=== PATIENT | male | born 1965 | race Caucasian/White ===

== ENCOUNTER 2019-05-14 10:13 | Emergency (ER) | payer OTHER ==
[~2019-05-14] VITALS: Ht 170.2 cm; Wt 72.6 kg
--- NOTE | 2019-05-14 10:50 | NUR ---
DR MCLAIN AT BEDSIDE FOR EVAL.
[2019-05-14] MEDS ORDERED: LORAZEPAM 1 MG TABLET PO ONE (11:00)
[2019-05-14] MEDS ORDERED: LORAZEPAM 0.5 MG TABLET ONE (11:05)
[2019-05-14 11:09] VITALS: BP 141/83
--- NOTE | 2019-05-14 11:19 | NUR ---
MEDICALLY CLEARED FOR BOOKING. RELEASED TO [facility].
== END 2019-05-14 11:20 ==
LOC: ER 10:20
DX: F11.23 Opioid dependence with withdrawal (principal); E11.9 Type 2 diabetes mellitus without complications; Z60.2 Problems related to living alone; W19.XXXA Unspecified fall, initial encounter; Y93.89 Activity, other specified; Y92.89 Other specified places as the place of occurrence of the external cause; Y99.8 Other external cause status

== ENCOUNTER 2023-03-08 16:49 | Inpatient (IN) | payer OTHER ==
[~2023-03-08] VITALS: Ht 170.2 cm; Wt 78.0 kg
--- NOTE | 2023-03-08 17:00 | NUR ---
LERYN[address] FROM [facility] FOR NOTED AMS SINCE THIS MORNING, HYPOTENSIVE AND HIGH BLOOD SUGAR READ PATIENT SUPPORT ASSISTANT. THE PATIENT IS VENT/TRACH. RESPONSIVE TO PAINFUL STIMULI. THE PATIENT IS ATTACHED TO THE MONITOR. BLANKET PROVIDED FOR COMFORT. WILL CONTINUE TO MONITOR THE PATIENT.
[2023-03-08] MEDS: IV NS 0.9% 1,000 ML BAG IV ONE (17:15)
--- NOTE | 2023-03-08 17:25 | NUR ---
covid swab done and sent to the lab
[2023-03-08] MEDS ORDERED: CLON0.2T PO (17:42)
[2023-03-08] MEDS ORDERED: VALP250S4 GT (17:42)
[2023-03-08] MEDS ORDERED: LEVO500T90 GT (17:42)
[2023-03-08] MEDS ORDERED: FAMO20TA8 GT (17:42)
[2023-03-08] MEDS ORDERED: ASPI-1169 GT (17:42)
[2023-03-08] MEDS ORDERED: INSU100V7 SQ ×2 (17:42)
[2023-03-08] MEDS ORDERED: ATOR40TA GT (17:42)
[2023-03-08] MEDS ORDERED: ASCO-352 GT (17:42)
[2023-03-08] MEDS ORDERED: METO25TA20 GT (17:42)
[2023-03-08] MEDS ORDERED: MAGN400O6 GT (17:42)
[2023-03-08] MEDS ORDERED: OLAN10TA3 PO (17:42)
[2023-03-08] MEDS ORDERED: TYL2T GT (17:42)
[2023-03-08] MEDS ORDERED: ACET-2605 GT (17:42)
[2023-03-08] MEDS ORDERED: GABA300C GT (17:42)
[2023-03-08] MEDS ORDERED: LORA-259 GT (17:42)
[2023-03-08] MEDS ORDERED: NUT.237L31 GT (17:42)
[2023-03-08] MEDS ORDERED: NA P133E RC (17:42)
[2023-03-08] MEDS ORDERED: ZINC50TA69 GT (17:42)
[2023-03-08] MEDS ORDERED: AMLO-213 GT (17:42)
[2023-03-08] MEDS ORDERED: POLY17PO4 GT (17:42)
[2023-03-08] MEDS ORDERED: ACET-868 GT (17:42)
[2023-03-08] MEDS ORDERED: LOPE2CAP40 GT (17:42)
[2023-03-08] MEDS ORDERED: COLL30OI TP (17:42)
[2023-03-08] MEDS ORDERED: NYST15CR TD (17:42)
[2023-03-08] MEDS ORDERED: NYST5ORA MM (17:42)
[2023-03-08] MEDS ORDERED: DOCU-141 GT (17:42)
[2023-03-08] MEDS ORDERED: INSU100V11 SQ (17:42)
[2023-03-08] MEDS ORDERED: BISA10SU11 RC (17:42)
--- NOTE | 2023-03-08 17:48 | NUR ---
MOVE SHEET SUBMITTED.
--- NOTE | 2023-03-08 17:50 | NUR ---
PERFORMED IN AND OUT CATH FOR PATIENT PER PHYSICIAN'S ORDERS IN ORDER TO OBTAIN URINE SAMPLE. Addendum: 03/08/23 at 1800 by NIALL URINE COLLECTED AND SENT TO LAB
--- NOTE | 2023-03-08 17:51 | NUR ---
BLOOD SPECIMEN COLLECTED AND SENT TO THE LAB
[2023-03-08 18:10] LABS: BASOPHILS % (AUTO) 0.3 % (0.0-2.0); EOSINOPHILS % (AUTO) 0.1 % (0.0-6.0); HEMATOCRIT 34 % (39-51); HEMOGLOBIN 10.6 g/dL (13.5-17.5); LYMPHOCYTES # (AUTO) 2.3 K/uL (0.8-4.8); LYMPHOCYTES % (AUTO) 26.6 % (20.0-44.0); MEAN CORPUSCULAR HGB CONC 32 g/dl (31.0-36.0); MEAN CORPUSCULAR VOLUME 84 fL (80-96); MONOCYTES # (AUTO) 1.1 K/uL (0.1-1.30); MONOCYTES % (AUTO) 12.9 % (2.0-12.0); NEUTROPHILS # (AUTO) 5.2 K/uL (1.8-8.9); NEUTROPHILS % (AUTO) 60.1 % (43.0-81.0); PLATELET COUNT (AUTO) 112 K/uL (150-450); RED BLOOD CELL COUNT(AUTO) 3.98 MIL/uL (4.5-6.0); WHITE BLOOD COUNT (AUTO) 8.7 K/uL (4.3-11.0)
--- NOTE | 2023-03-08 18:15 | NUR ---
pt to ct scan via [facility]
[2023-03-08 18:22] LABS: CALCIUM, SERUM 9.1 mg/dL (8.5-10.1); CARBON DIOXIDE 27 mmol/L (21-32); CHLORIDE 97 mmol/L (98-107); CREATININE 1.7 mg/dL (0.6-1.3); POTASSIUM 4.8 mmol/L (3.5-5.1); SODIUM SERUM 135 mmol/L (136-145); UREA NITROGEN, BLOOD 55 mg/dL (7-18)
[2023-03-08 18:25] LABS: GLUCOSE 421 mg/dL (74-106)
--- NOTE | 2023-03-08 18:26 | NUR ---
THE PATIENT IS TAKEN TO CT VIA [facility]
--- NOTE | 2023-03-08 18:32 | NUR ---
PT FROM CT SCAN VIA [facility],. PT STABLE VS, WNL.
[2023-03-08 18:36] LABS: ALANINE AMINOTRANSFERASE 22 U/L (12-78); ALBUMIN 2.6 g/dL (3.4-5.0); ALKALINE PHOSPHATASE 73 U/L (46-116); ASPARTATE AMINOTRANSFERASE 22 U/L (15-37); BILIRUBIN,DIRECT 0.1 mg/dL (0.0-0.2); BILIRUBIN,TOTAL 0.4 mg/dL (0.2-1.0)
[2023-03-08 18:54] LABS: BILIRUBIN,URINE NEGATIVE (NEGATIVE); COLOR,URINE YELLOW (YELLOW); LEUKOCYTE ESTERASE ,URINE TRACE (NEGATIVE); NITRITE, URINE NEGATIVE (NEGATIVE); PROTEIN,URINE 1+ mg/dl (NEGATIVE); UGLUCOSE 3+ mg/dL (NEGATIVE); UROBILINOGEN,URINE 0.2 EU/dL (0.2)
[2023-03-08 19:01] LABS: RBC,URINE 51-80 /HPF (0-2)
[2023-03-08 19:02] LABS: BACTERIA,URINE 3+ /HPF (None Seen); MUCUS,URINE Few /LPF (None Seen); SQUAMOUS EPITHELIAL CELL,UR 0-2 /HPF (None Seen)
[2023-03-08] MEDS ORDERED: INSULIN REGULAR, HUMAN 100 UNIT/ML 10 ML VIAL SQ ONE (19:30)
--- NOTE | 2023-03-08 19:30 | NUR ---
RECEIVED REPORT FROM ALTHEA MCMULLEN. PATIENT CAME EARLIER FROM SNF D/T LOW BP AND HI SUGAR LEVEL. PATIENT IS AAOX0. WITH TRACHE SIZE 8 ATTACHEDTO VENT ON AC MODE WITH SETTINGS OF FIO2 50%, TV 500ML, PEEP 5 RATE OF 14. PATIENT OPENS EYES, WITHDRAWS TO PAINFUL STIMULI. WITH G TUBE, WITH 2 IV CANNULA. LEFT WRIST G 20 AND LEFT FOOT G22. PT IS ATTACHED TO MONITOR. VITALS CHECKED.
[2023-03-08] MEDS ORDERED: PIPERACI/TAZO 3.375GM/D5W 50ML PB IV ONE (19:59)
[2023-03-08] MEDS ORDERED: PIPERACILLIN /TAZOBACTAM 3.375 G in IV D5W 50 ML IV ONE (20:00)
--- NOTE | 2023-03-08 21:04 | NUR ---
CALLED [facility], PAGED SUZY BUTLER GEOLOGY ASSOCIATE FOR ADMISSION
--- NOTE | 2023-03-08 21:11 | NUR ---
UPDATES GIVEN TO SHERWIN RUIZ. [phone]
--- NOTE | 2023-03-08 22:12 | NUR ---
CALLED [facility] [phone]. REQUESTING FACE SHEET, CLINICALS AND MED LIST TO BE FAX OVER AT [facility]. KENAN ALMONTE MADE AWARE.
[2023-03-09] MEDS ORDERED: Z GUARD REMEDY 4 OZ OINT TP PRN
[2023-03-09] MEDS ORDERED: BISACODYL SUPP (10 MG) 10 MG/SUPP.RECT SUPP.RECT RC PRN
[2023-03-09] MEDS ORDERED: DEXTROSE 50%-WATER 50 ML DISP.SYRIN IV PRN
[2023-03-09] MEDS ORDERED: LORAZEPAM 1 MG TABLET GT PRN
[2023-03-09] MEDS ORDERED: GLUCERNA 1.5 1,000 ML BOTTLE GT SCH
[2023-03-09] MEDS ORDERED: ONDANSETRON HCL/PF 4 MG/2 ML VIAL IVP PRN
--- NOTE | 2023-03-09 00:49 | NUR ---
BS RECHECKED 97
[2023-03-09] MEDS: BLOOD SUGAR DIAGNOSTIC 1 EACH STRIP IN SCH ×5 (00:52→23:07)
--- NOTE | 2023-03-09 00:53 | NUR ---
KENAN BUTLER MADE AWARE OF PT'S BS. AWAITING FOR FURTHER ORDER
--- NOTE | 2023-03-09 00:57 | NUR ---
BS 97, WILL NOT GIVE LANTUS DOSE AT THE MOMENT.
--- NOTE | 2023-03-09 02:10 | NUR ---
RM 328-2
[2023-03-09 02:25] VITALS: BP 149/79
--- NOTE | 2023-03-09 02:25 | NUR ---
REPORT GIVEN TO LUIS FERNANDO OH ALL QUESTIONS ANSWERED.
--- NOTE | 2023-03-09 02:41 | NUR ---
PT TRANSFERED TO 328-2 WITH ACLS PROTOCOL AND RT BAGGING PT WITH NO DISTRESS.
--- NOTE | 2023-03-09 03:00 | NUR ---
SAW FEEDER ADMITTING NOTE PATIENT WAS TRANSFERRED FROM ER TO 328 2 AT 0230H; PATIENT IS A/O X 1, OPENS EYE SPONTANEOUSLY BUT UNABLE TO SPEAK; STABLE ON CURRENT SETTING OF MECHANICAL VENTILATOR, BREATHING EVENLY AND NO S/S OF DISTRESS NOTED; HOOKED TO CARDIAC MONITORING CURRENTLY READING SINUS TACHYCARDIA 110S BPM; WITH IV ACCESS AT LEFT WRIST G#20 SALINE LOCK, WITH IV ACCESS AT LEFT FOOT G#22; WITH G TUBE IN PLACE; SKIN ASSESSMENT WAS DONE AND WOUNDS ARE PHOTOGRAPHED AND INSERTED INTO CHART; VITAL SIGNS TAKEN AND RECORDED; PATIENT'S BELONGINGS ACCOUNTED FOR; SAFETY MEASURES IMPLEMENTED, BED LOCKED IN LOWEST POSITION, SIDE RAILS UP X 2, CALL LIGHT AND TABLE WITHIN REACH; WILL CONTINUE TO MONITOR THROUGHOUT SHIFT
[2023-03-09] MEDS: IV NS 0.9% 1,000 ML IV PRN (03:55)
[2023-03-09 04:00] VITALS: BP 108/66
[2023-03-09] MEDS ORDERED: GLUCERNA 1.2 1,000 ML BOTTLE NG PRN (04:00)
[2023-03-09] MEDS: GLUCERNA 1.2 1,000 ML BOTTLE GT PRN (04:13)
[2023-03-09 06:13] LABS: BASOPHILS % (AUTO) 0.4 % (0.0-2.0); EOSINOPHILS % (AUTO) 0.5 % (0.0-6.0); HEMATOCRIT 27 % (39-51); HEMOGLOBIN 8.6 g/dL (13.5-17.5); LYMPHOCYTES # (AUTO) 0.7 K/uL (0.8-4.8); LYMPHOCYTES % (AUTO) 13.7 % (20.0-44.0); MEAN CORPUSCULAR HGB CONC 32 g/dl (31.0-36.0); MEAN CORPUSCULAR VOLUME 82 fL (80-96); MONOCYTES # (AUTO) 0.6 K/uL (0.1-1.30); MONOCYTES % (AUTO) 10.7 % (2.0-12.0); NEUTROPHILS # (AUTO) 3.8 K/uL (1.8-8.9); NEUTROPHILS % (AUTO) 74.7 % (43.0-81.0); PLATELET COUNT (AUTO) 80 K/uL (150-450); RED BLOOD CELL COUNT(AUTO) 3.28 MIL/uL (4.5-6.0); WHITE BLOOD COUNT (AUTO) 5.2 K/uL (4.3-11.0)
[2023-03-09 06:33] LABS: CALCIUM, SERUM 8.3 mg/dL (8.5-10.1); CREATININE 0.9 mg/dL (0.6-1.3); MAGNESIUM 1.9 mg/dL (1.8-2.4); PHOSPHORUS 2.3 mg/dL (2.5-4.9); POTASSIUM 3.2 mmol/L (3.5-5.1)
[2023-03-09] MEDS: INSULIN REGULAR, HUMAN 100 UNIT/ML 3 ML VIAL SQ PRN ×4 (06:42→23:10)
[2023-03-09 06:50] LABS: THYROID STIMULATING HORMONE 2.303 uIU/mL (0.358-3.74)
--- NOTE | 2023-03-09 07:00 | NUR ---
FOREST ECONOMIST CLOSING NOTE PATIENT IS A/O X 1, OPENS EYE SPONTANEOUSLY BUT UNABLE TO SPEAK; ON MECHANICAL VENTILATOR TOLERATING CURRENT SETTINGS, BREATHING EVENLY AND NO S/S OF DISTRESS NOTED; HOOKED TO CARDIAC MONITORING CURRENTLY READING SINUS TACHYCARDIA 100-110S BPM; WITH IV ACCESS AT LEFT WRIST G#20 SALINE LOCK RUNNING WITH NORMAL SALINE AT 75 ML/HR, WITH IV ACCESS AT LEFT FOOT G#22, SALINE LOCK; WITH G TUBE IN PLACE INFUSING WITH GLUCERNA 1.2 AT 50ML/HR FOR 20 HRS; SAFETY MEASURES IMPLEMENTED, BED LOCKED IN LOWEST POSITION, SIDE RAILS UP X 2, CALL LIGHT AND TABLE WITHIN REACH; WILL ENDORSE TO AM NURSE FOR CAROLE.
--- NOTE | 2023-03-09 07:40 | NUR ---
RN OPENING NOTE RECEIVED PATIENT AWAKE IN BED. A/O X1, OPENS EYES BUT UNABLE TO SPEAK. ON VENT, TOLERATING SETTING WELL AT PRESCRIBED SETTING, (FIO2:40 TV: 500 PEEP:5 AC) BREATHING EVEN AND UNLABORED, NO DISTRESS OR SHORTNESS OF BREATH NOTED. IV ACCESS ON LEFT WRIST #20G WITH NS AT 75 ML/HOUR, RIGHT HAND #22 SL AND LEFT FOOT #22G SL. WITH EXTERNAL PHYSICIST CRYOGENICS WITH CURRENT READING OF SINUS TACHYCARDIA WITH HR 115. WITH G TUBE GLUCERNA FEEDING 1.2L AT 50 ML/HOUR X 20HRS. FALL AND SAFETY MEASURES IN PLACE, BED ALARM ON, BED IN LOW AND LOCK POSITION, CALL LIGHT AND TABLE WITHIN EASY REACH, SIDE RAILS X2. WILL CONTINUE TO MONITOR. G-TUBE RUNNING,
[2023-03-09 08:00] VITALS: BP 118/66
[2023-03-09] MEDS ORDERED: COLLAGENASE 30 GM TUBE TP SCH (09:00)
[2023-03-09] MEDS: ASPIRIN 81 MG TAB.CHEW GT SCH (09:47)
[2023-03-09] MEDS: HEPARIN SODIUM, PORCINE 5000 UNITS/1 ML VIAL SQ SCH ×2 (09:47→20:05)
--- NOTE | 2023-03-09 09:47 | NUR ---
RN NOTE INFORMED DR MARSHALL OF PATIENTS LABORATORIES: HGB 8.6, HCT 27 AND PLATELET 80. ALSO INFORMED OF TEMPERATURE OF 102. ORDERED TO HOLD HEPARIN AND ENOXAPARIN. PRN MED FOR FEVER GIVEN VIA GT. ALSO ORDERED TO START VANCOMYCIN AND CEFEPIME, PHARMACY TO DOSE. ORDERS NOTED AND CARRIED OUT.
[2023-03-09] MEDS: POLYETHYLENE GLYCOL 3350 17 GM POWD.PACK GT SCH (09:51)
[2023-03-09] MEDS: FAMOTIDINE (20 MG) 20 MG TABLET GT SCH (09:51)
[2023-03-09] MEDS: GABAPENTIN 300 MG CAPSULE GT SCH ×3 (09:52→17:22)
[2023-03-09] MEDS: VALPROIC ACID 250 MG/5 ML UDC GT SCH ×3 (09:52→17:22)
[2023-03-09] MEDS: ZINC SULFATE 220 MG CAPSULE GT SCH (09:52)
[2023-03-09] MEDS: OLANZAPINE 10 MG TABLET PO SCH ×2 (09:52→17:22)
[2023-03-09] MEDS: ASCORBIC ACID 500 MG TABLET GT SCH (09:53)
--- NOTE | 2023-03-09 09:58 | NUR ---
RN NOTE CALLED PHARMACY, [facility] NOT YET AVAILABLE. WAS INFORMED BY PHARMACIST THAT THEY WILL DELIVER IT.
[2023-03-09] MEDS ORDERED: NEUTRA PHOS 1 POWD.PACKET GT ONE (10:00)
[2023-03-09] MEDS ORDERED: POTASSIUM CHLORIDE 20 MEQ POWDER PACKET GT ONE (10:00)
[2023-03-09] MEDS: ACETAMINOPHEN 650 MG/20.3 ML UDC PEG PRN ×2 (10:08→16:18)
--- NOTE | 2023-03-09 10:08 | NUR ---
ms rn patient is running fever of 102, md notified w/ orders, blood cultures done,tylenol 650 mg given via g tube,will monitor patient
[2023-03-09] MEDS: CADEXOMER IODINE 40 GM TUBE TP SCH (11:14)
[2023-03-09 12:00] VITALS: BP 113/63
[2023-03-09] MEDS ORDERED: VANCOMYCIN 1.5 GM in IV D5W 500ml IV ONE (12:00)
--- NOTE | 2023-03-09 12:00 | NUR ---
ms deonte temp recheck - 99 at this time.
[2023-03-09] MEDS: CEFEPIME 1 GM in IV D5W 50 ML IV SCH ×2 (12:53→20:09)
[2023-03-09 16:00] VITALS: BP 181/82
--- NOTE | 2023-03-09 16:00 | NUR ---
ms rn patient is hyperventilating, hr - 135 - temp - 101, tylenol 650 given via g tube, sponge bath given,started on iv atb, tolerated well w/o complication.
[2023-03-09] MEDS ORDERED: LABETALOL 20 MG/4 ML VIAL IV PRN (16:15)
[2023-03-09 16:48] LABS: BAND % (MANUAL) 5 % (0.0-5.0); EOSINOPHILS % (MANUAL) 1 % (0-4); LYMPHOCYTES % (MANUAL) 19 % (16-48); MONOCYTES % (MANUAL) 8 % (0-11.0); NEUTROPHILS % (MANUAL) 67 (42-76)
[2023-03-09] MEDS ORDERED: ACETAMINOPHEN 650 MG/20.3 ML UDC GT PRN (16:50)
--- NOTE | 2023-03-09 17:00 | NUR ---
ms rn temp rechecked - 98.8, no distress noted,hr -98 w/ 100 % saturation.
--- NOTE | 2023-03-09 17:30 | NUR ---
ms rn pm care done, no distress noted, v/s stable ,no distress noted, all needs attended.
[2023-03-09 17:49] LABS: HEMOGLOBIN 8.5 g/dL (13.5-17.5)
--- NOTE | 2023-03-09 19:15 | NUR ---
RN opening notes Pt is resting in bed comfortably. Pt is alert and orientedX1 and able to open eyes. On mec. vent with O2 sat is 100%. No SOB. No S/S of distress noted. IV site at L wrist # 20 is clean, intact and infusing well NS@ 75 ml/hr. R hand# 20 is clean, intact and SL.Tele monitor showed SR hr at 100. Gtube feeding is running glucerna 1.2@ 50 ml/hrX 20 hrs. Pt tolerated well. L wrist restraint is inplaced, circulation is checks Q 2 hr and skin is warm to touch. safety precautions is maintained. bed at low position, brakes locked, side rails upX3, hob elevated, bed alarm is on and call light is within reach. will continue to monitor.
[2023-03-09 20:00] VITALS: BP 141/83
--- NOTE | 2023-03-09 20:09 | NUR ---
RN notes Held heparin for low H+H and per MD ordered. no S/S of bleeding noted.
[2023-03-09] MEDS ORDERED: CEFEPIME 1 GM VIAL IM SCH (21:00)
[2023-03-09] MEDS: ATORVASTATIN 40 MG TABLET GT SCH (21:10)
[2023-03-09] MEDS: INSULIN GLARGINE, 100 UNIT/ML CARTRIDGE SQ SCH ×2 (23:08)
[2023-03-09] MEDS: VANCOMYCIN 1.25 GM in IV D5W 250 ML IV SCH (23:13)
[2023-03-10] VITALS (8 sets, daily range): BP systolic 90–136; BP diastolic 52–72
[2023-03-10 00:31] LABS: HEMOGLOBIN 8.8 g/dL (13.5-17.5)
--- NOTE | 2023-03-10 00:37 | NUR ---
RN notes Pt is having temp 103.3. administered tylenol/gtube as ordered fro fever. safety precautions is maintained. will continue to monitor.
--- NOTE | 2023-03-10 03:30 | NUR ---
RN notes Pt's temp 98.8 F.
[2023-03-10] MEDS: GLUCERNA 1.2 1,000 ML BOTTLE GT PRN (04:47)
[2023-03-10] MEDS: BLOOD SUGAR DIAGNOSTIC 1 EACH STRIP IN SCH ×4 (05:09→23:31)
[2023-03-10] MEDS: INSULIN REGULAR, HUMAN 100 UNIT/ML 3 ML VIAL SQ PRN ×4 (05:10→23:37)
--- NOTE | 2023-03-10 06:46 | NUR ---
RN closing notes Pt is resting in bed comfortably. Pt is alert and orientedX1 and able to open eyes. On mec. vent with O2 sat is 100%. No SOB. VS is stable. afebrile. No S/S of distress noted. IV site at L wrist # 20 is clean, intact and infusing well NS@ 75 ml/hr. R hand# 20 is clean, intact and SL VS is stable. Routine meds were given as ordered. Tele monitor showed SR hr at 93. Gtube feeding is running glucerna 1.2@ 50 ml/hrX 20 hrs. Pt tolerated well. L wrist restraint is inplaced, circulation is checks Q 2 hr and skin is warm to touch. Wound care provided as ordered. Kept Pt clean, dry and comfortable. safety precautions is maintained. bed at low position, brakes locked, side rails upX3, hob elevated, bed alarm is on and call light is within reach. Will endorse to am nurse for CAROLE.
[2023-03-10 07:02] LABS: CALCIUM, SERUM 8.4 mg/dL (8.5-10.1); CREATININE 0.9 mg/dL (0.6-1.3); PHOSPHORUS 2.8 mg/dL (2.5-4.9); POTASSIUM 3.3 mmol/L (3.5-5.1)
[2023-03-10 07:18] LABS: HEMOGLOBIN 8.7 g/dL (13.5-17.5)
--- NOTE | 2023-03-10 07:20 | NUR ---
LIVESTOCK TRUCKER OPENING NOTES RECEIVED PATIENT IN BED WITH HOB SLIGHTLY ELEVATED, PATIENT IS AOX1 WITH EYES OPENING. ON SHILEY 8 MECHANICAL VENTILATOR WITH CURRENT SETTING FIO2 40, VT 500, PEEP 5 SATURATING AT 100%. NO BREATHING DIFFICULTY NOR DISTRESS NOTED. IV ACCESSES NOTED AT R HAND G#20 PATENT WITH RUNNING NS @75 ML/HR, LEFT FOOT/ANKLE G#22 SL POA, R HAND G#22 SL, PATENT AND FLUSHING WELL. AFEBRILE, FLACC SCORE OF 0 HERMILO. ON TELEMONITORING WITH CURRENT READING OF SINUS RHYTHM WITH 87 BPM. G-TUBE FEEDING OF GLUCERNA 1.2 @50 ML/HR X 20 HRS, NO RESIDUAL NOTED. WITH L WRIST SOFT RESTRAINT, CIRCULATION IS GOOD WITH CAPILLARY REFILL OF 2 SECONDS, WARM TO TOUCH. WILL MONITOR FOR SAFETY Q2. SAFETY MEASURES IN PLACE: BED IN LOWEST AND LOCKED POSITION, SIDE RAILS X3, BED ALARM ON, CALL LIGHT AND TRAY TABLE WITHIN EASY REACH.
--- NOTE | 2023-03-10 08:05 | NUR ---
RN NOTES - CRITICAL VALUE ADAM FROM LAB CALLED TO REPORT PROCALCITONIN OF 9.45, WILL RELAY TO .
--- NOTE | 2023-03-10 08:43 | NUR ---
RN NOTES SCD PUMPS APPLIED ON BILATERAL LEGS, VTE SCORE OF 5, WILL CONTINUE TO MONITOR.
[2023-03-10] MEDS: HEPARIN SODIUM, PORCINE 5000 UNITS/1 ML VIAL SQ SCH ×2 (09:00→21:00)
[2023-03-10] MEDS: POLYETHYLENE GLYCOL 3350 17 GM POWD.PACK GT SCH (09:13)
[2023-03-10] MEDS: FAMOTIDINE (20 MG) 20 MG TABLET GT SCH (09:13)
[2023-03-10] MEDS: VALPROIC ACID 250 MG/5 ML UDC GT SCH ×3 (09:13→17:04)
[2023-03-10] MEDS: ASPIRIN 81 MG TAB.CHEW GT SCH (09:14)
[2023-03-10] MEDS: OLANZAPINE 10 MG TABLET PO SCH ×2 (09:14→17:04)
[2023-03-10] MEDS: ZINC SULFATE 220 MG CAPSULE GT SCH (09:14)
[2023-03-10] MEDS: CADEXOMER IODINE 40 GM TUBE TP SCH (09:14)
[2023-03-10] MEDS: GABAPENTIN 300 MG CAPSULE GT SCH ×3 (09:14→17:04)
[2023-03-10] MEDS: ASCORBIC ACID 500 MG TABLET GT SCH (09:14)
[2023-03-10] MEDS: CEFEPIME 1 GM in IV D5W 50 ML IV SCH ×2 (09:36→20:11)
--- NOTE | 2023-03-10 09:40 | NUR ---
RN NOTES - SPOKE TO KENAN MARROQUIN OVER THE PHONE REGARDING PROCALCITONIN OF 9.45, AWARE. ADVISED TO HOLD HEPARIN D/T PLATELET OF 80, H/H 8.7/27
[2023-03-10] MEDS: IV NS 0.9% 1,000 ML IV PRN (09:46)
[2023-03-10] MEDS ORDERED: POTASSIUM CHLORIDE 20 MEQ POWDER PACKET PO ONE (10:00)
--- NOTE | 2023-03-10 10:52 | NUR ---
RN NOTES - RECEIVED A CALL FROM [employer] THAT PATIENT'S HR WENT UP TO 140S, CHECKED AND PT IS BEING CHANGED BY SCIENCE TECHNICIANS, ASSISTED SCIENCE TECHNICIANS IN CLEANING THE PATIENT, DIAPER CHANGED, HR IS STILL AROUND 120S POST AM CARE, RT WAS PRESENT AND OBSERVED HIGH PEAK PRESSURE, PATIENT APPEARS TO BE AGITATED/ANXIOUS, SPOKE WITH BIRD SITTER LOPEZ, AWARE OF THE SITUATION, GIVEN 0.5 MG ATIVAN VIA GT. WILL CONTINUE TO MONITOR.
--- NOTE | 2023-03-10 11:04 | NUR ---
RN NOTES - RECEIVED A CALL FROM [facility] THAT GTF RATE WILL BE CHANGED TO 1,000 ML GT RATE = 60ML/[id number] PRN ORDERED, CARRIED OUT.
[2023-03-10] MEDS: VANCOMYCIN 1.25 GM in IV D5W 250 ML IV SCH ×2 (12:17→23:39)
--- NOTE | 2023-03-10 14:00 | NUR ---
RN NOTES - MOTHER AND FATHER AT BEDSIDE, REPOSITIONED PATIENT, APPLIED CONDOM CATHETER TO KEEP PATIENT DRY.
[2023-03-10 15:26] LABS: HEMOGLOBIN 7.6 g/dL (13.5-17.5)
--- NOTE | 2023-03-10 19:25 | NUR ---
MANAGER ORGANIZATIONAL CLOSING NOTES PATIENT IN BED WITH HOB SLIGHTLY ELEVATED, AOX1 WITH EYES OPENING. STILL WITH THE SAME MECHANICAL VENT SETTINGS, SATURATING AT 100%. NO BREATHING DIFFICULTY NOR DISTRESS NOTED. IV ACCESSES NOTED AT R HAND G#20 PATENT WITH RUNNING NS @75 ML/HR, LEFT FOOT/ANKLE G#22 SL POA, R HAND G#22 SL, PATENT AND FLUSHING WELL. NO FEVER DURING MY SHIFT, FLACC SCORE 0. TELEMONITORING SHOWING SINUS RHYTHM WITH 79 BPM. G-TUBE FEEDING OF GLUCERNA 1.2 @60 ML/HR X 24 HRS, NO RESIDUAL NOTED. WITH L WRIST SOFT RESTRAINT, CIRCULATION IS GOOD. REPOSITIONED PATIENT Q2H, OFFLOADED. KEPT PATIENT SAFE, DUE MEDS GIVEN. WITH CONDOM CATHETER IN PLACE, INTACT. SAFETY MEASURES MAINTAINED: BED IN LOWEST AND LOCKED POSITION, SIDE RAILS X3, BED ALARM ON, CALL LIGHT AND TRAY TABLE WITHIN EASY REACH. ENDORSED TO CHILD AND ADOLESCENT PSYCHOLOGIST NURSE.
--- NOTE | 2023-03-10 19:30 | NUR ---
RN opening notes Pt is resting in bed comfortably. Pt is alert and orientedX1 and able to open eyes. On mec. vent with O2 sat is 100%. No SOB. No S/S of distress noted. IV site at L wrist # 20 is clean, intact and infusing well NS@ 75 ml/hr. R hand# 20 is clean, intact and SL.Tele monitor showed SR hr at 80. Gtube feeding is running glucerna 1.2@ 60ml/hr with 0 residual. Pt tolerated well. L wrist restraint is inplaced, circulation is checks Q 2 hr and skin is warm to touch. safety precautions is maintained. bed at low position, brakes locked, side rails upX3, hob elevated, bed alarm is on and call light is within reach. will continue to monitor.
--- NOTE | 2023-03-10 21:00 | NUR ---
RN notes Held heparin for low H+H and per MD ordered. no S/S of bleeding noted. will continue to monitor.
[2023-03-10] MEDS: ATORVASTATIN 40 MG TABLET GT SCH (22:43)
[2023-03-10] MEDS: INSULIN GLARGINE, 100 UNIT/ML CARTRIDGE SQ SCH (23:35)
[2023-03-10 23:41] LABS: HEMOGLOBIN 7.8 g/dL (13.5-17.5)
[2023-03-11] MEDS: IV NS 0.9% 1,000 ML IV PRN ×2 (02:00→21:26)
[2023-03-11] MEDS: GLUCERNA 1.2 1,000 ML BOTTLE GT PRN (03:12)
[2023-03-11 04:50] VITALS: BP 105/60
[2023-03-11] MEDS: BLOOD SUGAR DIAGNOSTIC 1 EACH STRIP IN SCH ×3 (06:31→17:20)
[2023-03-11 06:35] LABS: HEMOGLOBIN 9.1 g/dL (13.5-17.5)
[2023-03-11] MEDS: INSULIN REGULAR, HUMAN 100 UNIT/ML 3 ML VIAL SQ PRN ×3 (06:35→17:24)
--- NOTE | 2023-03-11 07:03 | NUR ---
NONPROFIT FINANCIAL CONTROLLER closing notes Pt is resting in bed comfortably. Pt is alert and orientedX1 and able to open eyes. On mec. vent with O2 sat is 100%. No SOB. No S/S of distress noted. IV site at L wrist # 20 is clean, intact and infusing well NS@ 75 ml/hr. R hand# 20 is clean, intact and SL, no infiltration/infection noted. Tele monitor showed SR hr at 94. Gtube feeding is running glucerna 1.2@ 60ml/hr with 0 residual. Pt tolerated well. L wrist restraint is inplaced, circulation is checks Q 2 hr and skin is warm to touch. safety precautions is maintained. bed at low position, brakes locked, side rails upX3, hob elevated, bed alarm is on and call light is within reach. will endorse to am nurse for CAROLE.
[2023-03-11 07:19] LABS: CALCIUM, SERUM 8.6 mg/dL (8.5-10.1); CREATININE 0.8 mg/dL (0.6-1.3); POTASSIUM 3.4 mmol/L (3.5-5.1)
--- NOTE | 2023-03-11 07:46 | NUR ---
FREIGHT DISPATCHER OPENING NOTES RECEIVED PATIENT IN BED WITH HOB SLIGHTLY ELEVATED, PATIENT IS AOX1 WITH EYES OPENING, TRY TO PUT HIS LEFT HAND UNDER HIS BUTTOCKS, ASKED IF HE COULD HEAR ME BUT NO RESPONSE. ON SHILEY 8 MECHANICAL VENTILATOR WITH CURRENT SETTING FIO2 40, VT 500, PEEP 5 SATURATING AT 100%. NO BREATHING DIFFICULTY NOR DISTRESS NOTED. IV ACCESSES NOTED AT R HAND G#20 PATENT WITH RUNNING NS @75 ML/HR, LEFT FOOT/ANKLE G#22 SL POA, R HAND G#22 SL, PATENT AND FLUSHING WELL. AFEBRILE, FLACC SCORE OF 0 HERMILO. ON TELEMONITORING WITH CURRENT READING OF SINUS RHYTHM WITH 90 BPM. G-TUBE FEEDING OF GLUCERNA 1.2 @60 ML/HR X 24 HRS, NO RESIDUAL NOTED. WITH L WRIST SOFT RESTRAINT, CIRCULATION IS GOOD WITH CAPILLARY REFILL OF 2 SECONDS, WARM TO TOUCH. WILL MONITOR FOR SAFETY Q2H SAFETY MEASURES IN PLACE: BED IN LOWEST AND LOCKED POSITION, SIDE RAILS X3, BED ALARM ON, CALL LIGHT AND TRAY TABLE WITHIN EASY REACH. WILL CONTINUE TO MONITOR.
--- NOTE | 2023-03-11 08:55 | NUR ---
WOUND CARE CONSULT: PT PRESENTS WITH SACRAL DEEP TISSUE INJURY IN EVOLUTION OVER PREVIOUS SCARRING, SCARRING WITH DISCOLORATION AND CALLUSES TO HEELS, ALL PRESENT ON ADMISSION. RECOMMENDATIONS MADE FOR SKIN PROTECTION. DISCUSSED WITH NURSING STAFF. PT IS INCONTINENT. PT PLACED ON ISOFLEX LOW AIRLOSS BED. MD IN AGREEMENT WITH PLAN OF CARE.
[2023-03-11] MEDS: HEPARIN SODIUM, PORCINE 5000 UNITS/1 ML VIAL SQ SCH ×2 (08:56→21:49)
--- NOTE | 2023-03-11 08:56 | NUR ---
RN NOTES - DR MARSHALL PLACED HEPARIN ON HOLD D/T LOW H/H AND PLATELET COUNT. CARRIED OUT.
--- NOTE | 2023-03-11 08:57 | NUR ---
RN NOTES - REMOVED LEFT ANKLE/FOOT IV ACCESS, PULLED OUT UPON SKIN ASSESSMENT CHECK. ISOFLEX BED APPLIED.
[2023-03-11] MEDS ORDERED: VANCOMYCIN 0.75 GM in IV D5W 250 ML IV SCH (09:00)
[2023-03-11] MEDS: CADEXOMER IODINE 40 GM TUBE TP SCH (09:00)
[2023-03-11] MEDS: VALPROIC ACID 250 MG/5 ML UDC GT SCH ×3 (09:09→17:20)
[2023-03-11] MEDS: ASCORBIC ACID 500 MG TABLET GT SCH (09:09)
[2023-03-11] MEDS: OLANZAPINE 10 MG TABLET PO SCH ×2 (09:09→17:19)
[2023-03-11] MEDS: ASPIRIN 81 MG TAB.CHEW GT SCH (09:09)
[2023-03-11] MEDS: FAMOTIDINE (20 MG) 20 MG TABLET GT SCH (09:09)
[2023-03-11] MEDS: POLYETHYLENE GLYCOL 3350 17 GM POWD.PACK GT SCH (09:10)
[2023-03-11] MEDS: GABAPENTIN 300 MG CAPSULE GT SCH ×3 (09:10→17:20)
[2023-03-11] MEDS: ZINC SULFATE 220 MG CAPSULE GT SCH (09:10)
[2023-03-11] MEDS: CEFEPIME 1 GM in IV D5W 50 ML IV SCH (09:10)
[2023-03-11 09:13] VITALS: BP 141/74
[2023-03-11] MEDS ORDERED: POTASSIUM CHLORIDE 20 MEQ TAB.PRT.SR PO SCH (09:30)
--- NOTE | 2023-03-11 10:46 | NUR ---
RN NOTES - CALLED RESPIRATORY DEPT TO COLLECT SPUTUM VIA TRACH FOR RESPIRATORY CULTURE WITH GRAM STAIN, SPOKE TO MICKI, WILL COLLECT THIS AFTERNOON.
--- NOTE | 2023-03-11 10:47 | NUR ---
RN NOTES - LEFT IV ACCESS REMOVED, PATIENT PULLED, NO ACTIVE BLEEDING NOTED. PRESSURE GAUZE APPLIED.
[2023-03-11 11:14] VITALS: BP 141/81
[2023-03-11] MEDS: MEROPENEM 1 G in IV NS 0.9% 100 ML IV SCH ×2 (12:33→21:27)
--- NOTE | 2023-03-11 13:46 | NUR ---
RN NOTES - SPUTUM COLLECTED BY RT - CALLED LAB TO CONSTRUCTION PROJECT MANAGER FROM [facility], CONFIRMED.
--- NOTE | 2023-03-11 13:59 | NUR ---
RN NOTES - PM CARE DONE, CONDOM CATH REATTACHED.
[2023-03-11 15:48] LABS: HEMOGLOBIN 8.8 g/dL (13.5-17.5)
[2023-03-11 16:20] VITALS: BP 130/70
--- NOTE | 2023-03-11 19:30 | NUR ---
noc rn opening note Received patient in bed, eyes open, no s/s of apparent distress-- mechanical vent dependent. not exhibiting pain via flacc. reading sr on the tele monitor with 72 bpm. Patient has G-tube on running Glucerna 1.2 @60mls/hr. Right hand #22g running NS @75mls/hr. condom cath draining clear, yellow urine. safety in place-- bed in lowest, locked position, side rails up X4, bed alarm in place. will continue with plan of care for patient.
--- NOTE | 2023-03-11 19:48 | NUR ---
IT SOLUTIONS ARCHITECT CLOSING NOTES PATIENT IN BED WITH HOB SLIGHTLY ELEVATED, AOX1 WITH EYES OPENING. STILL WITH THE SAME MECHANICAL VENT SETTINGS, SATURATING AT 100%. NO BREATHING DIFFICULTY NOR DISTRESS NOTED. IV ACCESSES NOTED AT R HAND G#22 PATENT WITH RUNNING NS @75 ML/HRNO FEVER DURING MY SHIFT, FLACC SCORE 0. TELEMONITORING SHOWING SINUS RHYTHM WITH 90 BPM. G-TUBE FEEDING OF GLUCERNA 1.2 @60 ML/HR X 24 HRS, NO RESIDUAL NOTED. WITH L WRIST SOFT RESTRAINT, CIRCULATION IS GOOD. REPOSITIONED PATIENT Q2H, OFFLOADED. KEPT PATIENT SAFE, DUE MEDS GIVEN. WITH CONDOM CATHETER IN PLACE, INTACT. SAFETY MEASURES MAINTAINED: BED IN LOWEST AND LOCKED POSITION, SIDE RAILS X3, BED ALARM ON,
[2023-03-11 20:00] VITALS: BP 122/63
--- NOTE | 2023-03-11 21:00 | NUR ---
noc rn note messaged hospitalist Te Hoffman regarding patient scheduled 2100 Heparin if he would like to hold, d/t low H&H and Plt of 80 last drawn on the 03/09. Awaiting order.
--- NOTE | 2023-03-11 21:45 | NUR ---
noc rn note Hospitalist Te Hoffman said ok to give Heparin scheduled for 2100 then repeat cbc in the am.
[2023-03-11] MEDS: ATORVASTATIN 40 MG TABLET GT SCH (21:50)
[2023-03-11] MEDS: INSULIN GLARGINE, 100 UNIT/ML CARTRIDGE SQ SCH (22:13)
[2023-03-12] VITALS: BP 126/68
[2023-03-12] MEDS: BLOOD SUGAR DIAGNOSTIC 1 EACH STRIP IN SCH ×3 (00:19→12:17)
[2023-03-12] MEDS: GLUCERNA 1.2 1,000 ML BOTTLE GT PRN (00:28)
[2023-03-12] MEDS: INSULIN REGULAR, HUMAN 100 UNIT/ML 3 ML VIAL SQ PRN ×3 (00:31→12:19)
[2023-03-12] MEDS: MEROPENEM 1 G in IV NS 0.9% 100 ML IV SCH ×3 (05:09→15:08)
--- NOTE | 2023-03-12 06:45 | NUR ---
noc rn note Patient's peripheral line got pulled out. 3 nurses tried inserting multiple attempts of IV insertion, no luck. Made hospitalist and nursing crossing supervisor aware that patient in need of midline insertion. Midline ordered. Patient's Merrem non-administered d/t no IV access. HospitalistTe aware.
[2023-03-12 07:00] VITALS: BP 149/89
[2023-03-12 07:04] LABS: BASOPHILS % (AUTO) 0.5 % (0.0-2.0); EOSINOPHILS % (AUTO) 3.5 % (0.0-6.0); HEMATOCRIT 27 % (39-51); HEMOGLOBIN 8.7 g/dL (13.5-17.5); LYMPHOCYTES # (AUTO) 0.4 K/uL (0.8-4.8); LYMPHOCYTES % (AUTO) 16.3 % (20.0-44.0); MEAN CORPUSCULAR HGB CONC 33 g/dl (31.0-36.0); MEAN CORPUSCULAR VOLUME 81 fL (80-96); MONOCYTES # (AUTO) 0.3 K/uL (0.1-1.30); MONOCYTES % (AUTO) 9.5 % (2.0-12.0); NEUTROPHILS # (AUTO) 1.9 K/uL (1.8-8.9); NEUTROPHILS % (AUTO) 70.2 % (43.0-81.0); PLATELET COUNT (AUTO) 92 K/uL (150-450); WHITE BLOOD COUNT (AUTO) 2.7 K/uL (4.3-11.0)
--- NOTE | 2023-03-12 07:23 | NUR ---
noc rn note No significant change. reading sr this am. no s/s of distress. all needs attended. awaiting midline insertion for patient to continue Merrem antibiotic, endorsed to RN, Chantal for continuity of patient care.
[2023-03-12 07:40] LABS: CALCIUM, SERUM 8.7 mg/dL (8.5-10.1); CREATININE 0.7 mg/dL (0.6-1.3); PHOSPHORUS 3.7 mg/dL (2.5-4.9); POTASSIUM 3.3 mmol/L (3.5-5.1)
--- NOTE | 2023-03-12 08:17 | NUR ---
AIRLINE FLIGHT ATTENDANT OPENING NOTE Patient in bed, awake. Non-verbal but opens eyes. On mechanical ventilator, tolerating current settings well. No IV access at this time, awaiting for midline insertion. G-tube in place running Glucerna 1.2 at 60 ml/hr. On external monitoring showing SR, HR on the 80's. Safety precautions in place: bed in low, locked position; siderails up x2; call light within reach. Will continue to monitor. Addendum: 03/12/23 at 1138 by GREGORIO MESSINA RN ADD: Left soft wrist restraint noted.
[2023-03-12] MEDS: VALPROIC ACID 250 MG/5 ML UDC GT SCH ×2 (08:56→12:17)
[2023-03-12] MEDS: POLYETHYLENE GLYCOL 3350 17 GM POWD.PACK GT SCH (08:56)
[2023-03-12] MEDS: ZINC SULFATE 220 MG CAPSULE GT SCH (08:57)
[2023-03-12] MEDS: GABAPENTIN 300 MG CAPSULE GT SCH ×2 (08:57→12:17)
[2023-03-12] MEDS: OLANZAPINE 10 MG TABLET PO SCH (08:57)
[2023-03-12] MEDS: ASCORBIC ACID 500 MG TABLET GT SCH (08:57)
[2023-03-12] MEDS: FAMOTIDINE (20 MG) 20 MG TABLET GT SCH (08:57)
[2023-03-12] MEDS: ASPIRIN 81 MG TAB.CHEW GT SCH (08:57)
[2023-03-12] MEDS: HEPARIN SODIUM, PORCINE 5000 UNITS/1 ML VIAL SQ SCH (08:59)
[2023-03-12] MEDS: CADEXOMER IODINE 40 GM TUBE TP SCH (09:00)
--- NOTE | 2023-03-12 10:13 | NUR ---
RN NOTE shift supervisor film processing not able to administer Merem IV due to no IV access. New IV access re-inserted on Right hand #20. Pharmacy notified that will give 0500 dose right now.
[2023-03-12 12:02] VITALS: BP 137/86
[2023-03-12] MEDS ORDERED: POTASSIUM CHLORIDE 20 MEQ POWDER PACKET NG SCH (13:00)
[2023-03-12 14:18] LABS: EOSINOPHILS % (MANUAL) 3 % (0-4); LYMPHOCYTES % (MANUAL) 13 % (16-48); MONOCYTES % (MANUAL) 14 % (0-11.0); NEUTROPHILS % (MANUAL) 70 (42-76)
--- NOTE | 2023-03-12 19:38 | NUR ---
DISCHARGE NOTE Received order for discharge. Patient is non-verbal but opens eyes. On mechanical ventilator tolerating current settings well. Report given to ALTHEA Humphries of [facility]. Wound care done, as ordered. IV access removed, catheter tip intact. Pressure dressing applied. G-tube in place, intact and patent. Patient left in stable condition via ambulance with 2 fitness studies teacher.
== END 2023-03-12 16:50 | DRG 463 ==
LOC: ER 16:56 → TELE 03-09 02:17
PROVIDERS: ADMIT Nurse Practitioner Family
PROC: 5A1945Z Respiratory Ventilation, 24-96 Consecutive Hours (ICD-10-PCS; principal; 2023-03-09)
DX: N39.0 Urinary tract infection, site not specified (principal); N17.0 Acute kidney failure with tubular necrosis; G93.49 Other encephalopathy; D69.6 Thrombocytopenia, unspecified; E44.0 Moderate protein-calorie malnutrition; I95.9 Hypotension, unspecified; D63.8 Anemia in other chronic diseases classified elsewhere; E87.1 Hypo-osmolality and hyponatremia; E88.09 Other disorders of plasma-protein metabolism, not elsewhere classified; J96.10 Chronic respiratory failure, unspecified whether with hypoxia or hypercapnia; Z93.0 Tracheostomy status; Z99.11 Dependence on respirator [ventilator] status; G81.91 Hemiplegia, unspecified affecting right dominant side; E11.65 Type 2 diabetes mellitus with hyperglycemia; I69.398 Other sequelae of cerebral infarction; R13.10 Dysphagia, unspecified; Z20.822 Contact with and (suspected) exposure to COVID-19; Z86.19 Personal history of other infectious and parasitic diseases; Z98.890 Other specified postprocedural states; Z79.4 Long term (current) use of insulin; Z79.899 Other long term (current) drug therapy; Z79.82 Long term (current) use of aspirin; N18.9 Chronic kidney disease, unspecified; B96.89 Other specified bacterial agents as the cause of diseases classified elsewhere; Z93.1 Gastrostomy status; B96.20 Unspecified Escherichia coli [E. coli] as the cause of diseases classified elsewhere; Z16.12 Extended spectrum beta lactamase (ESBL) resistance; E86.0 Dehydration; E87.6 Hypokalemia; Z98.2 Presence of cerebrospinal fluid drainage device; I12.9 Hypertensive chronic kidney disease with stage 1 through stage 4 chronic kidney disease, or unspecified chronic kidney disease; E11.22 Type 2 diabetes mellitus with diabetic chronic kidney disease
CPT/HCPCS: 31720; 36415; 70450-TC; 71045-TC; 76770-TC; 80048-TC; 80076-TC; 80202-TC; 81001; 82607-TC; 82728-TC; 82962-TC; 83540-TC; 83735-TC; 83880; 84100-TC; 84443-TC; 84484-TC; 85025-TC; 85027-TC; 86803; 87040-TC; 87081-TC; 87086-TC; 87806; 94002-TC; 94003-TC; 94760-TC; 94762-TC; 94799-TC; 99082-TC; A4223; A4349; A6403; C9803; G0378; J0692; J1644; J1815; J2185; J2543; J3370; J3490; J7030; J7060